=== PATIENT | female | born 1970 | race Caucasian/White ===

== ENCOUNTER → 2016-06-03 | Outpatient (CLI) | payer BC ==
[~2016-06-03] MED LIST: ESCI1TAB6 PO; OMEP20TA14 PO
== END | disposition home or self-care (01) ==
LOC: C.PAPS 13:51
PROVIDERS: ATTEND Obstetrics & Gynecology
DX: Z01.419 Encounter for gynecological examination (general) (routine) without abnormal findings (principal)

== ENCOUNTER → 2016-06-03 | Outpatient (CLI) | payer BC, OTHER ==
[2016-06-06 01:55] LABS: CHLAMYDIA TRACH RNA*** NOT DETECTED (NOT DETECTED); GC (NEIS GONORRHOEAE)RNA** NOT DETECTED (NOT DETECTED)
== END | disposition home or self-care (01) ==
LOC: C.LABSPEC 16:22
PROVIDERS: ATTEND Obstetrics & Gynecology
DX: Z11.3 Encounter for screening for infections with a predominantly sexual mode of transmission (principal)

== ENCOUNTER → 2016-08-18 | Outpatient (CLI) | payer BC ==
--- NOTE | 2016-08-19 12:32 | MAMMOGRAPHY REPORT ---
BILATERAL DIGITAL SCREENING MAMMOGRAM TOMOSYNTHESIS WITH CAD: 08/18/2016 CLINICAL HISTORY: Routine screening examination. TECHNIQUE: Breast tomosynthesis in addition to standard 2D mammography was performed. Current study was also evaluated with a Computer Aided Detection (CAD) system. COMPARISON: Comparison is made to exams dated: 07/25/2015 mammogram, 02/20/2013 mammogram, 02/15/2012 mammogram, 01/28/2011 mammogram, 07/13/2014 mammogram, and 07/13/2014 ultrasound - [facility]. BREAST COMPOSITION: There are scattered areas of fibroglandular density in both breasts. FINDINGS: There are multiple circumscribed subcentimeter masses scattered throughout the superior po sterior aspect of each breast on the MLO views, most likely representing intramammary lymph nodes. No suspicious spiculated or irregular mass, architectural distortion or cluster of microcalcificatio ns is seen. IMPRESSION: ACR BI-RADS CATEGORY 1: NEGATIVE There is no mammographic evidence of malignancy. A 1 year screening mammogram is recommended. The p atient will receive written notification of the results. Approximately 10% of breast cancers are not detected with mammography. A negative mammographic repor t should not delay biopsy if a clinically suggestive mass is present. Kathya Samayoa M.D. ay/:08/18/2016 17:18:30 Toll Lineman: Niru MELGOZA(Alina)(Randa), [facility] letter sent: Normal 1/2 BI-RADS Code: ACR BI-RADS Category 1: Negative
== END | disposition home or self-care (01) ==
LOC: C.MAMM 13:17
PROVIDERS: ATTEND Physician Assistant
DX: Z12.31 Encounter for screening mammogram for malignant neoplasm of breast (principal)

== ENCOUNTER → 2016-10-29 | Day surgery (SDC) | payer BC ==
[2016-10-20 08:48] VITALS: Ht 163.8 cm; Wt 70.5 kg
--- NOTE | 2016-10-22 10:11 | HISTORY & PHYSICAL EXAMINATION ---
DATE OF ADMISSION: 10/29/2016 ADMITTING DIAGNOSES: 1. Menorrhagia with regular cycles. 2. Submucosal leiomyoma of the uterus. ADMISSION HISTORY: The patient is a 46-year-old 2, para 2, last menstrual period of 12 October, who is admitted for diagnostic hysteroscopy with resection of probable submucosal fibroid followed by endometrial ablation. The patient complains of heavy menstrual cycles with the passages of clots. Hysterosonogram showed what appears to be a small submucosal fibroid at the fundus of the uterus. The patient was tried on oral contraceptive pills with no success and as such, she has been admitted for the above listed procedures. The patient does have a history of first degree AV block and has received preoperative clearance from her primary care provider. PAST MEDICAL HISTORY: OBSTETRICAL: x2. GYNECOLOGIC: As above. MEDICAL: As above. SURGICAL: Ovarian cystectomy with tubal ligation. ALLERGIES: No known drug allergies. SOCIAL HISTORY: No smoking. FAMILY HISTORY: Noncontributory. REVIEW OF SYSTEMS: As per HPI. ADMISSION PHYSICAL EXAMINATION: GENERAL: Shows a pleasant female in no acute distress. VITAL SIGNS: Blood pressure 108/78, height of 5 feet 4 inches and weight 156 pounds. HEENT EXAMINATION: Unremarkable. NECK: Supple. LUNGS: Clear. HEART: With a regular rhythm and rate. ABDOMEN: Soft and nontender. PELVIC: Shows normal external genitalia. The vaginal vault is pink and rugated. The cervical os is multiparous and closed. Bimanual examination shows an anterior mobile uterus. Adnexa show no palpable masses. RECTAL: Confirmatory. EXTREMITIES: Shows no deep calf tenderness. NEUROLOGIC: Grossly intact. IMPRESSION: A 46-year-old G2, P2, menorrhagia with probable submucosal fibroid for resection and endometrial ablation. PLAN: The risks, benefits and alternatives to the surgery have been discussed. While the benefits will be evaluation of the endometrial lining, resection of the fibroid and ablation of the lining, the risks are bleeding, infection, inadvertent perforation of the uterus and failure to diagnose and/or treat the problem. In addition, we have discussed with the patient that it can take up to a year to determine the success or failure of the procedure. The patient understands this, permit has been signed, and she wishes to proceed. FADUMO
[~2016-10-29] VITALS: Ht 163.8 cm; Wt 70.5 kg
[~2016-10-29] MED LIST changes: +ATROPINE SULFATE 0.1 MG/ML 5ML SYR IV PRN; +DEXAMETHASONE SOD INJ 4 MG/ML VIAL ONE; +EpHEDrine SULFATE INJ 50 MG/ML AMP IV PRN; +FENTANYL CITRATE INJ 50 MCG/1 ML 2 ML VIAL IV PRN; +FENTANYL CITRATE INJ 50 MCG/1 ML 2 ML VIAL ONE; +FLUMAZENIL 0.1 MG/1 ML 10 ML VIAL IV PRN; +HYDROCODONE/ACETAMOPHEN 5/325MG TAB PO PRN; +IBUPROFEN 600 MG TAB PO PRN; +KETOROLAC TROMETHAMINE 30 MG/ML VIAL IV. PRN; +KETOROLAC TROMETHAMINE 30 MG/ML VIAL ONE; +LACTATED RINGER'S 1000ML 1,000 ML IV SCH; +LIDOCAINE HCL 2% 2 ML VIAL (20MG/ML) ONE; +MIDAZOLAM HCL 1 MG/ML 2ML VIAL ONE; +NALOXONE HCL 0.4 MG/1 ML VIAL/CARP IV PRN; +ONDANSETRON INJ 2 MG/ML 2 ML VIAL IV PRN; +ONDANSETRON INJ 2 MG/ML 2 ML VIAL ONE; +PROMETHAZINE HCL INJ 12.5 MG in SODIUM CHLORIDE 0.9% 50ML 50 ML IV PRN; +PROPOFOL IV EMULSION 10 MG/ML 20 ML VIAL IV ONE; +SODIUM CHLORIDE 0.9% 1000ML 1,000 ML IV SCH
--- NOTE | 2016-10-29 09:55 | History & Physical Bridge - SC ---
H&P Re-Evaluation Bridge Note: I have examined the patient, reviewed the History & Physical and in the interval since the performance of the History & Physical I have noted the following changes of clinical significance: No changes noted
--- NOTE | 2016-10-29 10:13 | History & Physical Bridge - SC ---
H&P Re-Evaluation Bridge Note: I have examined the patient, reviewed the History & Physical and in the interval since the performance of the History & Physical I have noted the following changes of clinical significance: The permit says D&C. No D&C is planned to be done
--- NOTE | 2016-10-29 11:02 | [facility] Post Operative Brief Note ---
Immediate Operative Summary Operative Date Oct 29, 2016. Pre-Operative Diagnosis 1) Menorrhagia, 2) Fibroid Post-Operative Diagnosis Same Procedure(s) Performed 1) Hysteroscopic evaluation of uterus 2) Resection of endometrial tissue 3) Endometrial Ablation with Novasure Surgeon Dr Desai Time Clock Inspector Surgeon(s) None Estimated Blood Loss 0ml Findings smooth endometrial lining with no appreciable submucosal fibroid to resect, endometrial tissue cleared with myosure before NovaSure endometrial ablation for 120 seconds. Fluid deficit for the procedure 170 cc Fluids (cc crystalloids) 800 Specimens A: Endometrial Currettings Drains None Anesthesia General Complication(s) None Disposition Recovery Room / PACU
--- NOTE | 2016-10-29 11:06 | Discharge Instructions-SurgCtr ---
Discharge Instructions Date of Service Oct 29, 2016. Visit Reason for Visit: Menorrhagia, Fibroid Discharge Discharge Diagnosis / Problem: same Discharge Goals Goal(s): Therapeutic intervention Activity Recommendations Activity Limitations: as noted below Anesthesia . Post Anesthesia Instructions: If you have had General Anesthesia or IV Sedation: * Do not drive today. * Resume driving when surgeon permits. * Do not make important decisions or sign legal documents today. * Call surgeon for: 1. Temperature elevations greater than 101 degrees F. 2. Uncontrollable pain. 3. Excessive bleeding. 4. Persistent nausea and vomiting. 5. Medication intolerance (nausea, vomiting or rash). * For nausea and vomiting use only clear liquids such as: tea, soda, bouillon until nausea subsides, then gradually increase diet as tolerated. * If you have any concerns or questions, call your surgeon's office. If physician is unavailable and it is an emergency, call 911 or go to the nearest emergency room. . Instructions / Follow-Up Instructions / Follow-Up ACTIVITY RECOMMENDATIONS: * Avoid tampons, douching, hot tubs, pools, and intercourse until bleeding has stopped. * May shower as usual. * No strenuous activity for 24-48 hours. After 24-48 hours, you may do anything you feel like doing (driving and sports are okay). SPECIAL CARE INSTRUCTIONS: Special Diet: * Mild nausea may occur in the immediate post-operative period. * Take clear liquids such as tea, cola or bouillon until all nausea has subsided; you may then resume your normal diet. Special Care: * Light bleeding and vaginal spotting can last from a few days to 3-4 weeks. Call your doctor if bleeding becomes heavier than the heaviest part of your period. * Check your temperature twice a day for one week. If it goes above 100.4 degrees Fahrenheit (38.0 Celsius), notify your doctor. * Call your doctor's office for an appointment for 6 weeks after your surgery. FOLLOW-UP VISIT: Call your doctor's office for an appointment for 6 weeks after your surgery. Diet Recommendations Home Diet: resume previous diet Procedures Procedures Performed: 1) Hysteroscopic evaluation of uterus 2) Resection of endometrial tissue 3) Endometrial Ablation with Novasure Pending Studies Studies pending at discharge: yes List of pending studies: Pathology of endometrial lining Medical Emergencies . Who to Call and When: Medical Emergencies: If at any time you feel your situation is an emergency, please call 911 immediately. . Non-Emergent Contact Non-Emergency issues call your: Hand Miter Operator Call Non-Emergent contact if: you have a fever, temperature is above 100.5 . . "Provider Documentation" section prepared by Raleigh Desai. .
--- NOTE | 2016-10-29 11:17 | Medical Student: [facility] ---
Operative Report Operative Date Oct 29, 2016. Pre-Operative Diagnosis 1. Submucosal uterine fibroid 2. Hypermenorrhea 3. Anemia (secondary) Post-Operative Diagnosis Uterine fibroid (not protruding into entometrium); hypermenorrhea; anemia Procedure(s) Performed 1. Dilation 2. Hysteroscopy with endometrial ablation Surgeon Dr. Raleigh Desai Director Clinical Data Surgeon(s) N/A Estimated Blood Loss minimal Findings Uterus was anteriorly facing. 4.5 cm in length. Cervix was 4.5 cm in length and well-visualized and without lesions. Bimanual exam was negative for adnexal masses. Fluids (cc crystalloids) 750 ml IV Specimens None collected Anesthesia General anesthesia with LMA Complication(s) None Disposition Recovery Room / PACU Implants None Description of Procedure Patient was prepped with Betadine and draped using sterile technique. She was placed under general anesthesia using an LMA. A bimanual exam was performed and there were no adnexal masses or abnormalities noted. A speculum was used to expose the cervix, which was then grasped using a tenaculum. The uterus depth was measured at a total depth of 9.0 cm (4.5 cm cervix and 4.5 cm) and was dilated using successive dilators (19-21 and 21-23 cm). A scope was inserted into the canal the uterus was further dilated using sterile saline solution. The endometrial lining was visualized using the scope camera, and a fibroid was noted, but it was not protruding into the endometrium enough to warrant shaving it down. The endometrial lining was ablated using the latest NovaSure device; total ablation time was exactly 2 minutes. After two minutes the NovaSure was removed, and the dilating fluid was allowed to drain out.
[2016-10-29 11:44] VITALS: TEMP 36.6
--- NOTE | 2016-10-29 11:56 | OPERATIVE REPORT ---
DATE OF OPERATION: 10/29/2016 PREOPERATIVE DIAGNOSES: 1. Menorrhagia. 2. Submucosal fibroid. POSTOPERATIVE DIAGNOSIS: Same. PROCEDURE PERFORMED: 1. Diagnostic hysteroscopy. 2. Curettage of endometrial tissue. 3. NovaSure endometrial ablation. SURGEON: Dr. Desai. ANESTHESIA: General. FINDINGS: Uterus measured to 9 cm. Hysteroscopic examination of the cervix showed a smooth endometrial lining with spurious endometrial tuffs of tissue. No appreciable submucosal fibroid impinging upon the endometrial cavity. Spurious endometrial tissue excised with MyoSure. NovaSure endometrial ablation performed for 120 seconds. Post-procedure ablation showed a good burn with fluid deficit of 170 mL PROCEDURE IN DETAIL: The patient was taken to the operating room and after general anesthesia, was placed in dorsolithotomy position and draped and prepped in the usual fashion. Bladder was then drained of any residual urine. Single tooth tenaculum was used to grasp the anterior lip of the cervix. The uterus was measured to a depth of 9 cm. Cervix was then dilated with Springer dilators to a Springer #23 and the MyoSure hysteroscope was inserted into the endometrial cavity. The endometrial cavity with description as above. The MyoSure instrument was inserted and under direct visualizations, spurious endometrial tissue was excised using the MyoSure. The cervical length was then measured at 4.5 cm giving a functional length of 4.5 cm for the endometrial cavity. The MyoSure was inserted into the endometrial cavity and the array was deployed. Cavity length of 4.5 cm, cavity width of 3.7 cm. An endometrial ablation for 120 seconds was performed. The NovaSure was removed. Post-ablation hysteroscopy showed an ablated endometrium. Fluid deficit for the procedure 170 mL. The patient taken out of dorsal lithotomy to recovery room in satisfactory condition. I attest to the content of the Intraoperative Record and any orders documented therein. Any exceptions are noted below. MTDD
[2016-10-29 12:17] VITALS: BP 141/80; PULSE 63; O2SAT 100
--- NOTE | 2016-10-29 12:18 | Anesthesia Progress Nt - [facility] ---
Anesthesia Post Op Note Date & Time Oct 29, 2016 at 12:18 Vital Signs Pain Intensity: 3 Vital Signs Past 12 Hours Date Time Temp Pulse Resp B/P (MAP) Pulse Ox O2 Delivery O2 Flow Rate FiO2 10/29/16 11:44 36.6 68 131/78 (95) 67 Room Air 10/29/16 11:31 130/90 10/29/16 11:30 36.9 68 16 131/81 100 Room Air 10/29/16 11:29 61 9 10/29/16 11:29 58 9 100 10/29/16 11:26 131/81 10/29/16 11:24 78 17 100 10/29/16 11:24 76 17 10/29/16 11:22 142/68 10/29/16 11:19 69 21 99 10/29/16 11:19 68 21 10/29/16 11:16 132/82 10/29/16 11:14 76 18 10/29/16 11:14 77 18 100 10/29/16 11:13 66 18 100 10/29/16 11:13 66 18 10/29/16 11:11 122/76 10/29/16 11:08 70 13 10/29/16 11:08 70 13 100 10/29/16 11:06 123/93 10/29/16 11:04 119/82 10/29/16 11:03 36.2 73 16 119/82 100 Diffusion Mask 10/29/16 11:03 71 10/29/16 11:03 71 100 10/29/16 09:13 36.5 69 16 117/78 (91) 100 Room Air Notes Mental Status: alert / awake / arousable, participated in evaluation Pt Amnestic to Procedure: Yes Nausea / Vomiting: adequately controlled Pain: adequately controlled Airway Patency, RR, SpO2: stable & adequate BP & HR: stable & adequate Hydration State: stable & adequate Anesthetic Complications: no major complications apparent
== END | disposition home or self-care (01) ==
LOC: X.SURG 08:47
PROVIDERS: ATTEND Obstetrics & Gynecology
DX: D25.0 Submucous leiomyoma of uterus (principal); N85.00 Endometrial hyperplasia, unspecified

== ENCOUNTER → 2016-12-30 | Outpatient (CLI) | payer BC ==
[~2016-12-30] MED LIST changes: -ATROPINE SULFATE 0.1 MG/ML 5ML SYR IV PRN; -DEXAMETHASONE SOD INJ 4 MG/ML VIAL ONE; -EpHEDrine SULFATE INJ 50 MG/ML AMP IV PRN; -FENTANYL CITRATE INJ 50 MCG/1 ML 2 ML VIAL IV PRN; -FENTANYL CITRATE INJ 50 MCG/1 ML 2 ML VIAL ONE; -FLUMAZENIL 0.1 MG/1 ML 10 ML VIAL IV PRN; -HYDROCODONE/ACETAMOPHEN 5/325MG TAB PO PRN; -IBUPROFEN 600 MG TAB PO PRN; -KETOROLAC TROMETHAMINE 30 MG/ML VIAL IV. PRN; -KETOROLAC TROMETHAMINE 30 MG/ML VIAL ONE; -LACTATED RINGER'S 1000ML 1,000 ML IV SCH; -LIDOCAINE HCL 2% 2 ML VIAL (20MG/ML) ONE; -MIDAZOLAM HCL 1 MG/ML 2ML VIAL ONE; -NALOXONE HCL 0.4 MG/1 ML VIAL/CARP IV PRN; -ONDANSETRON INJ 2 MG/ML 2 ML VIAL IV PRN; -ONDANSETRON INJ 2 MG/ML 2 ML VIAL ONE; -PROMETHAZINE HCL INJ 12.5 MG in SODIUM CHLORIDE 0.9% 50ML 50 ML IV PRN; -PROPOFOL IV EMULSION 10 MG/ML 20 ML VIAL IV ONE; -SODIUM CHLORIDE 0.9% 1000ML 1,000 ML IV SCH
--- NOTE | 2016-12-30 10:23 | DIAGNOSTIC IMAGING REPORT ---
LEFT ANKLE 3 VIEWS HISTORY: Left ANKLE PAIN COMPARISON: None. FINDINGS: There is no fracture or dislocation. Mild soft tissue swelling. No radiopaque foreign bodies. IMPRESSION: No fractures. Electronically signed by: Matthias Andersen M.D. 12/30/2016 10:22 AM Dictated Date/Time: 12/30/2016 10:18 AM
== END | disposition home or self-care (01) ==
LOC: C.RAD 09:17
PROVIDERS: ATTEND Nurse Practitioner Family
DX: M25.572 Pain in left ankle and joints of left foot (principal)

== ENCOUNTER → 2017-09-06 | Outpatient (CLI) | payer OTHER | END | disposition home or self-care (01) | LOC: C.PAPS 14:20 | PROVIDERS: ATTEND Physician Assistant | DX: Z12.4 Encounter for screening for malignant neoplasm of cervix (principal) ==

== ENCOUNTER → 2017-09-06 | Outpatient (CLI) | payer OTHER ==
[2017-09-06 10:20] LABS: BASO % 0.4 %; BASO ABS # 0.02 K/uL (0-0.2); EOS % 0.4 %; EOS ABS # 0.02 K/uL (0-0.5); HEMOGLOBIN 14.7 g/dL (12.0-16.0); LYMPH % 18.9 %; LYMPH ABS # 0.98 K/uL (1.2-3.4); MEAN CELL VOLUME 91.1 fL (80-100); MEAN CORPUSCULAR HEMOGLOBIN 31.9 pg (25-34); MEAN PLATELET VOLUME 9.7 fL (7.4-10.4); MONO % 6.9 %; MONO ABS # 0.36 K/uL (0.11-0.59); NEUT % 73.4 %; NEUT ABS # 3.81 K/uL (1.4-6.5); PLATELET COUNT 361 K/uL (130-400); RED CELL DISTRIBUTION WIDTH CV 12.6 % (11.5-14.5); RED CELL DISTRIBUTION WIDTH SD 41.9 fL (36.4-46.3); WHITE BLOOD COUNT 5.19 K/uL (4.8-10.8)
[2017-09-06 11:23] LABS: HEP C IGG 13 YRS+OLDER_RFLX NEG (NEG)
== END | disposition home or self-care (01) ==
LOC: C.LAB1850 09:11
PROVIDERS: ATTEND Physician Assistant
DX: Z01.818 Encounter for other preprocedural examination (principal); Z12.4 Encounter for screening for malignant neoplasm of cervix; Z11.3 Encounter for screening for infections with a predominantly sexual mode of transmission; I44.30 Unspecified atrioventricular block; N92.0 Excessive and frequent menstruation with regular cycle

== ENCOUNTER → 2017-09-24 | Outpatient (CLI) | payer OTHER ==
--- NOTE | 2017-09-27 07:49 | MAMMOGRAPHY REPORT ---
BILATERAL DIGITAL SCREENING MAMMOGRAM TOMOSYNTHESIS WITH CAD: 09/24/2017 CLINICAL HISTORY: Routine screening. Patient has no complaints. TECHNIQUE: Breast tomosynthesis in addition to standard 2D mammography was performed. Current study was also evaluated with a Computer Aided Detection (CAD) system. COMPARISON: Comparison is made to exams dated: 08/18/2016 mammogram, 07/25/2015 mammogram, 07/13/2014 m ammogram, 02/20/2013 mammogram, 02/15/2012 mammogram, and 01/28/2011 mammogram - [facility] enter. BREAST COMPOSITION: There are scattered areas of fibroglandular density in both breasts. FINDINGS: No suspicious masses, calcifications, or areas of architectural distortion are noted in ei ther breast. There has been no significant interval change compared to prior exams. IMPRESSION: ACR BI-RADS CATEGORY 1: NEGATIVE There is no mammographic evidence of malignancy. A 1 year screening mammogram is recommended. The pa tient will receive written notification of the results. Approximately 10% of breast cancers are not detected with mammography. A negative mammographic report should not delay biopsy if a clinically suggestive mass is present. Zo Castellanos M.D. ah/:09/24/2017 14:43:47 Vocational Horticulture Instructor: Melissa MELGOZA(Alina)(M), [facility] letter sent: Normal 1/2 BI-RADS Code: ACR BI-RADS Category 1: Negative
== END | disposition home or self-care (01) ==
LOC: C.MAMM 13:14
PROVIDERS: ATTEND Nurse Practitioner Family
DX: Z12.31 Encounter for screening mammogram for malignant neoplasm of breast (principal)